=== PATIENT | male | born 1950 | race Caucasian/White ===

== ENCOUNTER 2020-10-13 05:40 | Observation (INO) | payer MEDICARE ==
[2020-10-07 14:10] LABS: BASOPHILS % 0.2 % (0.0-1.0); HEMATOCRIT 41.9 % (38.2-49.6); HEMOGLOBIN 13.6 g/dL (14.0-18.0); LYMPHOCYTES # (AUTO) 1.8 (1.0-3.2); LYMPHOCYTES % 14.4 % (18.0-39.1); MEAN CORPUSCULAR HEMOGLOBIN 29.3 pg (28-32); MEAN CORPUSCULAR HGB CONC 32.5 g/dL (31-35); MEAN CORPUSCULAR VOLUME 90.3 fL (81-99); MONOCYTES # (AUTO) 0.3 (0.2-0.8); MONOCYTES % 2.8 % (4.4-11.3); NEUTROPHILS # (AUTO) 9.9 (2.1-6.9); NEUTROPHILS % 81.5 % (38.7-80.0); PLATELET COUNT 205 x10e3/uL (140-360); RED BLOOD COUNT 4.64 x10e6/uL (4.3-5.7); RED CELL DISTRIBUTION WIDTH 13.2 % (11.7-14.4)
[2020-10-07 14:29] LABS: INR 0.93; PROTHROMBIN TIME 12.9 seconds (11.9-14.5)
[2020-10-07 14:30] LABS: ANION GAP 11.5 mmol/L (8-16); BLOOD UREA NITROGEN 13 mg/dL (7-26); BUN/CREATININE RATIO 16 (6-25); CALCIUM 9.3 mg/dL (8.4-10.2); CARBON DIOXIDE 27 mmol/L (22-29); CHLORIDE 103 mmol/L (98-107); CREATININE, SERUM 0.82 mg/dL (0.72-1.25); EST GLOMERULAR FILTRATION RATE > 60 ML/MIN (60-); GLUCOSE 119 mg/dL (74-118); PARTIAL THROMBOPLASTIN TIME 25.8 seconds (23.8-35.5); POTASSIUM 4.5 mmol/L (3.5-5.1); SODIUM 137 mmol/L (136-145)
--- NOTE | 2020-10-07 15:31 | Diagnostic Imaging Report ---
EXAMINATION: CHEST 2 VIEWS INDICATION: Pre-operative COMPARISON: None FINDINGS: LINES/TUBES:None LUNGS:The lungs are well-inflated. No focal consolidation or pulmonary edema. Mild bibasilar subsegmental atelectasis. PLEURA:No pleural effusion or pneumothorax. MEDIASTINUM:The cardiomediastinal silhouette appears normal in size and shape. Atherosclerotic calcifications of the thoracic aorta. BONES/SOFT TISSUES:No acute osseous injury. ABDOMEN:No free air under the diaphragm. IMPRESSION: No focal pneumonia or pulmonary edema. Signed by: Cassidy Woody MD on 10/07/2020 3:27 PM
[~2020-10-13] VITALS: Ht 180.3 cm; Wt 86.2 kg
[2020-10-13] VITALS (7 sets, daily range): BP systolic 114–139; BP diastolic 60–82
[~2020-10-13 05:40] MED LIST: NORCO 10-325 T1 EACH PO; PREDNISONE5 MG PO
[2020-10-13] MEDS ORDERED: CEFAZOLIN SOD 1 GM/NS 50ML 100 ML IV ONE (06:24)
[2020-10-13] MEDS ORDERED: CRESTOR10 MG PO (06:46)
[2020-10-13] MEDS ORDERED: CEFDINIR300 MG PO (06:46)
[2020-10-13] MEDS ORDERED: PROVENTIL HFA6.7 GM INH (06:46)
[2020-10-13] MEDS ORDERED: ALBUTEROL INHALER IH (06:46)
[2020-10-13] MEDS ORDERED: CELEBREX100 MG PO (06:46)
[2020-10-13] MEDS ORDERED: ASPIRIN81 MG PO (06:46)
[2020-10-13] MEDS ORDERED: FLUTICASONE SPRAY (06:46)
[2020-10-13] MEDS ORDERED: CETIRIZINE HCL10 MG PO (06:46)
[2020-10-13] MEDS ORDERED: THROMBIN FOR SOLN 5,000 UNIT VIAL ONE (06:52)
[2020-10-13] MEDS ORDERED: VANCOMYCIN HCL 1 GM VIAL ONE (06:52)
[2020-10-13] MEDS ORDERED: LIDOCAINE 1% W/EPINEPHRINE 20 ML VIAL ONE (06:52)
[2020-10-13] MEDS ORDERED: IBUPROFEN 800MG/ 200ML 200 ML IV ONE (07:24)
[2020-10-13] MEDS ORDERED: LIDOCAINE HCL (LTA) 4 ML SOLN ONE (07:24)
[2020-10-13] MEDS ORDERED: ACETAMINOPHEN 1000 MG/100 ML 0 ML IV ONE (07:24)
[2020-10-13] MEDS ORDERED: ALBUTEROL SULFATE HFA 8GM INHALATION AEROSOL INH PRN (09:00)
[2020-10-13] MEDS ORDERED: ACETAMINOPHEN 325 MG TAB PO PRN (09:00)
[2020-10-13] MEDS ORDERED: HYDROCODONE/APAP 10MG-325MG TAB PO SCH (09:00)
[2020-10-13] MEDS: CELECOXIB 100 MG CAP PO SCH (09:00)
[2020-10-13] MEDS ORDERED: MAGNESIUM/ALUMINUM/SIMETHICONE 30 ML UDC PO PRN (09:00)
[2020-10-13] MEDS ORDERED: CARISOPRODOL 350 MG TAB PO PRN (09:00)
[2020-10-13] MEDS ORDERED: ONDANSETRON HCL INJ 2MG/ML 2ML 2 MG/ML VIAL IV PRN (09:00)
[2020-10-13] MEDS ORDERED: SIMVASTATIN 40 MG TAB PO SCH (09:00)
[2020-10-13] MEDS ORDERED: PROMETHAZINE HCL (IM) 25 MG/ML VIAL IM PRN (09:00)
[2020-10-13] MEDS ORDERED: CEPACOL SORE THROAT LOZENGES PO PRN (09:00)
[2020-10-13] MEDS ORDERED: OXYCODONE/ACETAMINOPHEN 5-325 1 EACH TABLET PO PRN (09:00)
[2020-10-13] MEDS ORDERED: MORPHINE SULFATE 5 MG/ML VIAL IM PRN (09:00)
[2020-10-13] MEDS ORDERED: FENTANYL CITRATE/PF 100MCG/2 ML INJ ONE (09:28)
--- NOTE | 2020-10-13 09:30 | Operative Report ---
DATE OF PROCEDURE: 10/13/2020 SURGEON: John Herrera MD PREOPERATIVE DIAGNOSIS: Right L4-5 disk herniation with radiculopathy, M51.16. POSTOPERATIVE DIAGNOSIS: Right L4-5 disk herniation with radiculopathy, M51.16. PROCEDURE: Right L4-5 laminotomy, medial facetectomy, and microsurgical diskectomy, [id number]. ANESTHESIA: General. INDICATIONS: The patient is a 70-year-old man who presents with a right L4-5 disk herniation with inferior migration of the extruded disk fragment. He was taken to surgery for microsurgical diskectomy. PROCEDURE IN DETAIL: After induction of general anesthesia, the patient was placed on the operating table in prone position over José frame. Lumbar region was prepped and draped in sterile fashion. A preoperative x-ray was obtained. A small midline incision was created. Lumbar fascia was opened in right of midline and subperiosteal dissection was carried out to expose the right side of the L4 and L5 lamina and medial aspect of the facet joint. A second x-ray confirmed correct localization. The operating microscope was brought in. The high-speed drill equipped with ozzie bur was used to drill the inferior aspect pf lamina of L4 and superior rim of the lamina of L5 and the medial rim of the L4-5 facet joint. The ligamentum flavum was resected. The dural sac and the L5 traversing nerve root were exposed. The herniated disk material came into view under the L5 nerve root, just below the L4-5 disk space during, herniated disk material was mobilized and removed with a microball probe. The opening into the annulus of this was enlarged with a #11 blade and the loose contents of the L4-5 disk were thoroughly evacuated with curettes and pituitary instruments. Meticulous hemostasis was secured. Retractor was removed. The lumbar fascia was closed with 0 Vicryl suture. Subcutaneous layer was closed with 2-0 Vicryl sutures. The skin was closed with 3-0 Monocryl sutures in subcuticular fashion. Steri-Strips and dressing were applied. The patient was awakened, extubated, and taken to postanesthesia care unit in stable condition. No intraoperative complications were encountered. ESTIMATED BLOOD LOSS: Minimal. Johnsree Herrera MD PP/MODL /[id number]
--- NOTE | 2020-10-13 10:47 | Diagnostic Imaging Report ---
Intraoperative lateral view of the lumbar spine, 07:38 hours Intraoperative lateral view of the spine, 07:47 hours INDICATION: ^X-RAY FOR SURGICAL LEVEL. Comparison: None available. Discussion: Initial image demonstrates localization of the L4-5 level. Second image demonstrates surgical instrumentation projecting at the L4-5 facet joint. Moderate focal degenerative changes are noted at L4-5 with disc space narrowing and facet arthropathy. IMPRESSION: Intraoperative lateral views of the lumbar spine as above localizing the L4-5 interspace. Signed by: Marcelo Denson MD on 10/13/2020 10:44 AM
--- NOTE | 2020-10-13 12:00 | NUR ---
RECEIVED REPORT FROM PACU. PATIENT ARRIVED TO THE UNIT @ 1150 VIA STRETCHER. PATIENT IN STABLE CONDITION, NO S/S OF DISTRESS NOTED. RESPIRATIONS EVEN AND NONLABORED. PATIENT ABLE TO VOICE NEEDS. SAMIA HOSE APPLIED. SCDs APPLIED. DRESSING TO THE LOWER BACK WITH A SMALL AMOUNT OF BLOOD NOTED TO THE DRESSING. IV SITE ASYMPTOMATIC AND PATENT , TRANSPARENT DRESSING C/D/I. BED IN LOWEST POSITION AND LOCKED, SIDE RAILS X 2, NONSKID SOCKS APPLIED. CALL LIGHT WITHIN REACH.
[2020-10-13] MEDS ORDERED: NEOSTIGMINE 1 MG/ML 10ML VIAL ONE (12:44)
[2020-10-13] MEDS ORDERED: PROPOFOL IV EMULSION 10 MG/ML 20 ML VIAL ONE (12:44)
[2020-10-13] MEDS ORDERED: LIDOCAINE HCL 2% LOCAL INJ 5 ML SDV VIAL INJ ONE (12:44)
[2020-10-13] MEDS ORDERED: ONDANSETRON HCL INJ 2MG/ML 2ML 2 MG/ML VIAL ONE (12:44)
[2020-10-13] MEDS ORDERED: SEVOFLURANE INHAL SOLN 250 ML PEN BTL ONE (12:44)
[2020-10-13] MEDS ORDERED: ROCURONIUM BROMIDE 10 MG/ML 5ML VIAL IV ONE (12:44)
[2020-10-13] MEDS ORDERED: GLYCOPYRROLATE INJ 0.2 MG/ML VIAL ONE (12:44)
[2020-10-13] MEDS ORDERED: DEXAMETHASONE SOD PHOS INJ 4 MG/ML VIAL ONE (12:44)
[2020-10-13] MEDS ORDERED: LIDOCAINE HCL 2% JELLY 5 ML TUBE ONE (12:44)
[2020-10-13] MEDS: HYDROMORPHONE 2MG/ML 2 MG/ML ML IV PRN ×2 (13:30→17:57)
[2020-10-13] MEDS: LACTATED RINGER'S 1,000 ML IV SCH ×2 (13:46→17:20)
[2020-10-13] MEDS: CEFAZOLIN SOD 1 GM/NS 50ML 50 ML IV SCH ×2 (16:27→23:32)
--- NOTE | 2020-10-13 19:02 | NUR ---
COMPLETED BEDSIDE REPORT AND ROUNDING WITH ONCOMING NIGHT NURSE. PATIENT IN STABLE CONDITION, NO S/S OF DISTRESS NOTED. RESPIRATIONS EVEN AND NONLABORED. PATIENT ABLE TO VOICE NEEDS. SAMIA HOSE APPLIED. SCDs APPLIED. DRESSING TO THE LOWER BACK C/D/I. IV SITE ASYMPTOMATIC AND PATENT , TRANSPARENT DRESSING C/D/I. BED IN LOWEST POSITION AND LOCKED, SIDE RAILS X 2, NONSKID SOCKS APPLIED. CALL LIGHT WITHIN REACH.
--- NOTE | 2020-10-13 19:05 | NUR ---
Received bedside shift report from off-going nurse. Pt alert, awake, and oriented. Pt denies pain or discomfort at this time. Side rails up x2. Non-skid socks on. TEDs/SCDs knee high on bilateral. Instructed pt to call for assistance/when necessary. Call light within reach. Pt denies further questions or concerns at this time.
--- NOTE | 2020-10-13 20:10 | NUR ---
Pt tolerating meals/po fluids. Continuous IV fluids stopped per order as pt is tolerating meals and po fluids. Left AC 20g IV saline locked per MD orders. Left AC 20g IV flushed with 10mL NS and clamped. Will leave IV in place as per MD order as pt still has IV antibiotics to complete before DC home tomorrow.
--- NOTE | 2020-10-13 20:35 | NUR ---
Pt requested to ambulate in hallway. SCD's disconnected bilaterally. TEDs and non-slip socks/foot wear on. Observed pt ambulate in room prior to allowing him to ambulate in hallway to observe that he is steady on his feet. Pt is steady on feet. Pt ambulating in toribio within sight of nurses station.
[2020-10-13] MEDS ORDERED: ZOLPIDEM TARTRATE 5 MG TAB PO PRN (21:00)
[2020-10-13] MEDS ORDERED: SIMVASTATIN 20 MG TAB PO SCH (21:00)
[2020-10-14] VITALS: BP 121/60
[2020-10-14] MEDS: LACTATED RINGER'S 1,000 ML IV SCH ×2 (00:06→10:00)
--- NOTE | 2020-10-14 00:16 | NUR ---
Pts IV antibiotic has completed. IV flushed with 10mL NS and saline locked. Pt requests to not be bothered so that he can get some sleep. Instructed pt to call if needed. Pt states that he may call later tonight for pain medication. Acknowledged pts concerns and confirmed that call light is within reach.
[2020-10-14 04:00] VITALS: BP 112/60
[2020-10-14 07:59] VITALS: BP 130/65
[2020-10-14 08:38] VITALS: BP 130/65
[2020-10-14] MEDS ORDERED: CEFDINIR 300 MG CAP PO SCH (09:00)
[2020-10-14] MEDS: CEFAZOLIN SOD 1 GM/NS 50ML 50 ML IV SCH (09:01)
[2020-10-14] MEDS: CELECOXIB 100 MG CAP PO SCH (09:01)
[2020-10-14] MEDS ORDERED: NORCO 7.5-3251 EACH PO (10:57)
--- NOTE | 2020-10-14 11:11 | NUR ---
EDUCATED ABOUT AKHTAR, SIGNED, FILED IN CHART, WITH COPY LEFT WITH FAMILY AT BEDSIDE.
[2020-10-14 11:29] VITALS: BP 125/63
--- NOTE | 2020-10-14 13:31 | NUR ---
visited the pt and his friend, pt asked chef german for prayer for forgiveness and healing, chef german provided pastoral conversation , hope building and counseling and prayer . Pt says he is much more peaceful and he wanted give money to chef german, chef german happily refused and appreciated his kindness. chaplain Nina
[2020-10-14] MEDS ORDERED: ONDANSETRON HCL 4 MG ORAL DISINTEGRATING TAB PO PRN (13:45)
[2020-10-15] MEDS ORDERED: CELECOXIB 200 MG CAP PO SCH (09:00)
== END 2020-10-14 12:33 | disposition home or self-care (01) ==
LOC: OR 05:40 → PACU V 08:51 → MED/SURG 11:46
PROVIDERS: ADMIT Neurological Surgery; ATTEND Neurological Surgery
DX: M51.16 Intervertebral disc disorders with radiculopathy, lumbar region (principal); J45.909 Unspecified asthma, uncomplicated; J44.9 Chronic obstructive pulmonary disease, unspecified; E78.5 Hyperlipidemia, unspecified; Z20.828 Contact with and (suspected) exposure to other viral communicable diseases
CPT/HCPCS: 36415; 63047; 71046; 72020; 80048; 85025; 85610; 85730; 86850; 86900; 88304; 93005; G0378 ×2; J0690 ×2; J1100; J1170; J2001 ×2; J2405; J2704; J2710; J3010; J3370; J7121; U0002